=== PATIENT | male | born 1990 | race Caucasian/White ===

== ENCOUNTER 2017-08-27 00:06 | Emergency (ER) | payer SELFPAY ==
[~2017-08-27] VITALS: Ht 172.7 cm; Wt 60.3 kg
[~2017-08-27 00:06] MED LIST: NO HOME MEDS; PEN-VEE K,VEET500 MG PO; ULTRAM50 MG PO
[2017-08-27] MEDS ORDERED: AUGMENTIN875 MG PO (03:44)
[2017-08-27] MEDS ORDERED: PERCOCET 5/31 TABLET PO (03:47)
[2017-08-27 03:54] VITALS: BP 143/80
== END 2017-08-27 03:54 | disposition home or self-care (01) ==
LOC: EME 00:06
DX: S02.40FA Zygomatic fracture, left side, initial encounter for closed fracture (principal); S61.256A Open bite of right little finger without damage to nail, initial encounter; Y04.0XXA Assault by unarmed brawl or fight, initial encounter; Y04.1XXA Assault by human bite, initial encounter
CPT/HCPCS: 70110; 70450; 70486; 99281; 99283